=== PATIENT | male | born 1980 | race African-American/Black ===

== ENCOUNTER 2017-07-12 12:36 | Emergency (ER) | payer MEDICAID ==
[~2017-07-12] VITALS: Ht 180.3 cm; Wt 81.0 kg
[2017-07-12 14:13] VITALS: BP 118/90
== END 2017-07-12 17:31 | disposition left against medical advice (07) ==
LOC: ER 12:48
DX: M54.5 Low back pain (principal); G89.29 Other chronic pain; L89.159 Pressure ulcer of sacral region, unspecified stage; G40.909 Epilepsy, unspecified, not intractable, without status epilepticus; G82.20 Paraplegia, unspecified; Z99.3 Dependence on wheelchair; Z53.29 Procedure and treatment not carried out because of patient's decision for other reasons
CPT/HCPCS: 99283; Z7610